=== PATIENT | female | born 1955 | race Caucasian/White ===

== ENCOUNTER 2018-09-22 14:40 | Outpatient (CLI) | payer MEDICARE ==
--- NOTE | 2018-09-22 15:39 | RAD ---
SCOLIOSIS STUDY: Technique: Single view of the thoracic spine, single view of the lumbosacral spine. History: 63-year-old female with back pain. History of scoliosis. FINDINGS: Anterior views of the thoracic and lumbosacral spine were performed. There is mild sclerotic curvatur e of the thoracolumbar spine. The maximum angle is approximately 23 degrees. There are small osteophy ernesto throughout the spine. No vertebral anomalies are present. IMPRESSION: Mild to moderate scoliotic curvature of the spine with associated degenerative changes as above. POS: CET
== END 2018-09-22 14:41 | disposition home or self-care (01) ==
LOC: BICRAD 14:40
PROVIDERS: ATTEND Physical Medicine & Rehabilitation
DX: M54.9 Dorsalgia, unspecified (principal); M43.9 Deforming dorsopathy, unspecified
CPT/HCPCS: 72081

== ENCOUNTER 2018-10-02 16:39 | Outpatient (CLI) | payer MEDICARE ==
--- NOTE | 2018-10-02 17:44 | RAD ---
CERVICAL SPINE THREE VIEWS: 10/02/18 HISTORY: Pain. FINDINGS: There is no prevertebral soft tissue swelling. Predental space is normal. On the lateral projection, slight reversal of the normal cervical lordosis. Cervical spine vertebral body height is maintained. There are no vertebral body fractures. There is severe degenerative holm e with loss of disc space height at C3-C4. Mild degenerative change at C4-C5, C5-C6 and C6-C7. There are multiple surgical clips projecting over the anterior inferior neck. On the AP projection, t here is evidence of facet hypertrophy. There are calcifications in the left neck suggesting atheroscl erotic disease. On the open mouth projection, limited evaluation of the odontoid process. Lateral masses of C1 and C2 articulate appropriately. IMPRESSION: Degenerative changes of the cervical spine. MRI if clinically warranted. POS: LINDA
== END 2018-10-02 16:40 | disposition home or self-care (01) ==
LOC: BICRAD 16:39
PROVIDERS: ATTEND Physical Medicine & Rehabilitation
DX: M54.2 Cervicalgia (principal); M47.812 Spondylosis without myelopathy or radiculopathy, cervical region
CPT/HCPCS: 72040

== ENCOUNTER 2019-02-19 09:25 | Outpatient (CLI) | payer MEDICARE ==
--- NOTE | 2019-02-19 11:46 | BD ---
BONE DENSITOMETRY USING DEXA: HISTORY: Postmenopausal screening for osteoporosis. FINDINGS: Lumbar Spine: BMD (g/cm2) L1 0.757 T-Score: -2.1 Z-Score: -0.5 L2 0.798 T-Score: -2.1 Z-Score: -0.3 L3 0.893 T-Score: -1.7 Z-Score: 0.2 L4 0.908 T-Score: -1.4 Z-Score: 0.6 L1-L4 0.849 T-Score: -1.8 Z-Score: 0.0 Femoral Neck: 0.539 T-Score: -2.8 Z-Score: -1.2 Total Femur: 0.825 T-Score: -1.0 Z-Score: 0.3 Impression: Osteoporosis. POS: OFF
--- NOTE | 2019-03-23 14:41 | MMO ---
Bilateral MAMMO Bilat Screen [facility]. CLINICAL HISTORY: Patient is 63 years old and is seen for screening. The patient has no family history of breast cancer. The patient has no personal history of cancer. The patient has a history of left cyst aspiration in YEARS AGO - benign. VIEWS: The views performed were: bilateral craniocaudal with tomosynthesis and bilateral mediolateral oblique with tomosynthesis. MAMMOGRAM FINDINGS: There are scattered fibroglandular densities. There are benign appearing calcifications seen in both breasts. There are no suspicious masses, suspicious calcifications, or new areas of architectural distortion. IMPRESSION: THERE IS NO MAMMOGRAPHIC EVIDENCE OF MALIGNANCY. A ROUTINE FOLLOW-UP MAMMOGRAM IN 1 YEAR IS RECOMMENDED. THE RESULTS OF THIS EXAM WERE SENT TO THE PATIENT. ACR BI-RADS Category 2 - Benign finding MAMMOGRAPHY NOTE: 1. A negative mammogram report should not delay a biopsy if a dominant of clinically suspicious mass is present. 2. Approximately 10% to 15% of breast cancers are not detected by mammography. 3. Adenosis and dense breasts may obscure an underlying neoplasm.
== END 2019-02-19 09:26 | disposition home or self-care (01) ==
LOC: BICMAMMO 09:25
PROVIDERS: ATTEND Family Medicine
DX: Z12.31 Encounter for screening mammogram for malignant neoplasm of breast (principal); M85.89 Other specified disorders of bone density and structure, multiple sites; M81.0 Age-related osteoporosis without current pathological fracture
CPT/HCPCS: 77063; 77067; 77080

== ENCOUNTER 2020-05-01 08:00 | Outpatient (CLI) | payer MEDICARE, OTHER ==
[2020-05-02 14:03] LABS: SARS-CoV-2 MS2 Positive; SARS-CoV-2 N Gene Negative; SARS-CoV-2 S Gene Negative; SARS-CoV-2 orf1ab Negative
== END 2020-05-04 08:01 | disposition home or self-care (01) ==
LOC: LABSCS 08:00
PROVIDERS: ATTEND Internal Medicine Gastroenterology
DX: Z01.812 Encounter for preprocedural laboratory examination (principal); Z11.59 Encounter for screening for other viral diseases; R13.19 Other dysphagia
CPT/HCPCS: 87635; U0003

== ENCOUNTER 2020-05-05 10:14 | Outpatient (CLI) | payer MEDICARE ==
--- NOTE | 2020-05-05 12:05 | RAD ---
XR Barium Swallow Esophagus History: Dysphagia Comparison: None. Findings: Patient was brought to the fluoroscopy suite. All questions were answered. 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 Lungs are otherwise c lear. Initially the patient was given gas-forming crystals and then thick liquid barium. The primary and se condary peristalsis was normal. No diverticulum, extrinsic mass effect nor mucosal regularity of the esophagus. The patient was subsequently given a 13 mm barium tablet which passed with ease. Next the patient was put in the PIRES position and given thin liquid barium to continuously drink. Agai n the primary and secondary peristalsis was normal. No reflux. No hiatal hernia. Impression: Normal esophagram. No evidence for stricture, extrinsic mass effect, mucosal irregularity , diverticulum, reflux nor hiatal hernia. Fluoroscopy time: 0.9 minutes
== END 2020-05-05 10:15 | disposition home or self-care (01) ==
LOC: RAD 10:14
PROVIDERS: ATTEND Internal Medicine Gastroenterology
DX: R13.19 Other dysphagia (principal)
CPT/HCPCS: 74220

== ENCOUNTER 2020-07-21 13:32 | Outpatient (CLI) | payer MEDICARE ==
--- NOTE | 2020-07-21 15:24 | MRI ---
MRI CERVICAL SPINE NONCONTRAST: Date: 07/21/2020 HISTORY: 65-year-old female with ICD-10: M54.2, neck pain; G62.9, peripheral neuropathy. COMPARISON: None available. FINDINGS: Mild reversal of curvature. No major subluxation. Cervical spinal cord is normal in size and signal. No major bone marrow signal abnormality. Vertebral body heights are maintained. C1-2: No central spinal canal stenosis. C2-3: Mild to moderate disc space narrowing. Small central disc-osteophyte protrusion. Moderate righ t and severe left facet DJD. No central or neural foraminal stenosis. C3-4: Severe disc space narrowing. Peripheral bony bridging of endplates. Normal right facet joint. Ankylosed left facet joint. No high grade central spinal canal stenosis and no significant neural for aminal stenosis. C4-5: Severe disc space narrowing. Mild, shallow broad based disc-osteophyte complex abuts and sligh tly indents the ventral surface of the spinal cord. Despite this, there is no central spinal canal st enosis. Bilateral small to moderate size uncinate process osteophytes encroach upon neural foramina, causing mild right and mild to moderate left neural foraminal stenosis. Normal right facet joint. Mil d left facet DJD. C5-6: Moderate disc space narrowing. Normal bilateral facet joints. Central and left paracentral sha llow broad based disc-osteophyte complex abuts left ventral surface of spinal cord. No high grade jane tral spinal canal stenosis. Small to moderate size bilateral uncinate process osteophytes, left great er than right. No right neural foraminal stenosis. Moderate left neural foraminal stenosis. C6-7: Severe disc space narrowing. No central spinal canal stenosis. Moderate size bilateral uncinat e process osteophytes. Right nerve root sleeve cyst in the right neural foramen. Mild right neural fo raminal stenosis. Moderate left neural foraminal stenosis. Normal right facet joint. Ankylosed left f acet joint. C7-T1: Mild disc space narrowing. Minimal broad based disc protrusion. Normal right facet joint. Rig ht neural foraminal nerve root sleeve cyst. Mild to moderate left neural foraminal stenosis. No centr al spinal canal stenosis. Little or no right neural foraminal stenosis. Moderate left neural foramina l stenosis. IMPRESSION: 1. Cervical spondylosis consisting of multilevel advanced degenerative disc disease. 2. 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 3. No high grade central spinal canal stenosis at any level. 4. Moderate neural foraminal stenosis at several levels, mostly on the left side. POS: JIN
== END 2020-07-21 13:33 | disposition home or self-care (01) ==
LOC: SCSMRI 13:32
PROVIDERS: ATTEND Neurological Surgery
DX: M54.2 Cervicalgia (principal); G62.9 Polyneuropathy, unspecified; M47.812 Spondylosis without myelopathy or radiculopathy, cervical region; M43.22 Fusion of spine, cervical region; M48.02 Spinal stenosis, cervical region
CPT/HCPCS: 72141

== ENCOUNTER 2021-01-03 09:29 | Outpatient (CLI) | payer MEDICARE | END 2021-01-03 09:30 | disposition home or self-care (01) | LOC: BICMAMMO 09:29 | PROVIDERS: ATTEND Family Medicine | DX: Z12.31 Encounter for screening mammogram for malignant neoplasm of breast (principal); M81.0 Age-related osteoporosis without current pathological fracture; M47.816 Spondylosis without myelopathy or radiculopathy, lumbar region; M85.89 Other specified disorders of bone density and structure, multiple sites | CPT/HCPCS: 77063; 77067; 77080 ==

== ENCOUNTER 2023-02-17 09:48 | Outpatient (CLI) | payer MEDICARE | END 2023-02-17 09:49 | disposition home or self-care (01) | LOC: BICMAMMO 09:48 | PROVIDERS: ATTEND Family Medicine Sports Medicine | DX: Z12.31 Encounter for screening mammogram for malignant neoplasm of breast (principal); Z78.0 Asymptomatic menopausal state; M81.0 Age-related osteoporosis without current pathological fracture | CPT/HCPCS: 77063; 77067; 77080 ==

== ENCOUNTER 2025-04-19 09:01 | Outpatient (CLI) | payer MEDICARE | END 2025-04-19 09:02 | disposition home or self-care (01) | LOC: BICMAMMO 09:01 | PROVIDERS: ATTEND Student in an Organized Health Care Education/Training Program | DX: Z12.31 Encounter for screening mammogram for malignant neoplasm of breast (principal); M81.0 Age-related osteoporosis without current pathological fracture; M85.89 Other specified disorders of bone density and structure, multiple sites; Z80.3 Family history of malignant neoplasm of breast | CPT/HCPCS: 77063; 77067; 77080 ==

== ENCOUNTER 2025-05-11 08:30 | Inpatient (IN) | payer MEDICARE ==
[2025-05-11 08:31] VITALS: BMI 27.7
[2025-05-11 09:23] LABS: #Basophils 0.03 10x3/uL (0.0-0.2); #Eosinophils 0.09 10x3/uL (0.0-0.7); #Monocytes 0.48 10x3/uL (0.11-0.59); #Neutrophils 3.58 10x3/uL (1.40-6.50); %Basophils 0.5 % (0.0-1.0); %Eosinophils 1.6 % (0.0-10.0); %Lymphocytes 24.2 % (21.0-51.0); %Monocytes 8.7 % (0.0-10.0); %Neutrophils 64.6 % (42.0-75.0); Hematocrit 37.8 % (36.0-47.0); Hemoglobin 12.5 g/dL (12.0-16.0); Mean Corpuscular Hemoglobin 30.3 pg (27.0-31.0); Mean Corpuscular Volume 91.5 fL (78.0-98.0); Platelet Count 269 10x3/uL (130-400); Red Blood Cell (RBC) Count 4.13 mill/uL (4.20-5.40); White Blood Cell (WBC) Count 5.54 10x3/uL (4.8-10.8)
[2025-05-11 09:46] LABS: ALT (SGPT) 11 U/L (Less than 34); AST (SGOT) 24 U/L (11-34); Albumin 3.9 g/dL (3.1-4.5); Alkaline Phosphatase 97 U/L (40-110); Anion Gap 12 mmol/L (10-20); BUN (Urea Nitrogen) 18 mg/dL (9.8-20.1); Bilirubin, Total 0.6 mg/dL (0.3-1.2); Calc. Creatinine Clearance 0 mL/min (70-130); Calcium 9.3 mg/dL (7.8-10.44); Carbon Dioxide 25 mmol/L (23-31); Chloride 104 mmol/L (98-107); Globulin 3.9 g/dL (2.4-3.5); Glucose 95 mg/dL (83-110); Potassium 4.0 mmol/L (3.5-5.1); Sodium 137 mmol/L (136-145)
[2025-05-11 10:12] LABS: INR-International Normal Ratio 2.2; Prothrombin Time 24.6 sec (12.0-14.7)
[2025-05-11 10:13] LABS: PTT 52.7 sec (22.9-36.1)
[2025-05-18] MEDS ORDERED: Heparin 10,000 UNITS/ 10 ML VIAL ONE (08:10)
[2025-05-18] MEDS ORDERED: CEFAZOLIN 2 GM VIAL ONE (08:10)
[2025-05-18] MEDS ORDERED: Lidocaine 1% (PF) 30 ML VIAL ONE (08:11)
[2025-05-18] MEDS ORDERED: fentaNYL PF 100 MCG/2 ML SYRINGE ONE (08:39)
[2025-05-18] MEDS ORDERED: Lidocaine 2% PF 100 mg/5 ml Syringe ONE (08:39)
[2025-05-18] MEDS ORDERED: SUGAMMADEX SODIUM 200 MG/2 ML VIAL ONE (08:39)
[2025-05-18] MEDS ORDERED: PROPOFOL 200 MG/20 ML VIAL ONE (08:42)
[2025-05-18] MEDS ORDERED: Rocuronium Bromide 10 MG/ML (10ML VIAL) ONE (08:42)
[2025-05-18] MEDS ORDERED: Ondansetron PF 4 MG/2 ML Vial ONE (08:42)
[2025-05-18] MEDS ORDERED: Iopamidol 370 76% 100 ML VIAL ONE (11:02)
== END 2025-05-18 15:07 | disposition home or self-care (01) | DRG 274 ==
LOC: SURG A 05-18 07:09 → EDSTATUS 05-18 08:30
PROVIDERS: ADMIT Internal Medicine Cardiovascular Disease; ATTEND Internal Medicine Cardiovascular Disease
PROC: 02L73DK Occlusion of Left Atrial Appendage with Intraluminal Device, Percutaneous Approach (ICD-10-PCS; principal; 2025-05-18)
PROC: B245ZZ4 Ultrasonography of Left Heart, Transesophageal (ICD-10-PCS; 2025-05-18)
PROC: 3E03329 Introduction of Other Anti-infective into Peripheral Vein, Percutaneous Approach (ICD-10-PCS; 2025-05-18)
PROC: 3E033XZ Introduction of Vasopressor into Peripheral Vein, Percutaneous Approach (ICD-10-PCS; 2025-05-18)
DX: I48.0 Paroxysmal atrial fibrillation (principal); Z00.6 Encounter for examination for normal comparison and control in clinical research program; Z86.711 Personal history of pulmonary embolism; Z79.01 Long term (current) use of anticoagulants; Z88.2 Allergy status to sulfonamides; Z88.5 Allergy status to narcotic agent; Z91.041 Radiographic dye allergy status
CPT/HCPCS: 33340; 36415; 80053; 85025; 85347; 85610; 85730; 86850; 86900; 86901; 93306; 93312; C1753; C1760; C1769; C1889; C1893; C1894; J1100; J1644; J2003; J2405; J2704; J2720; J3010; J7050; Q9967

== ENCOUNTER 2025-06-29 05:59 | Day surgery (SDC) | payer MEDICARE ==
[2025-06-28 11:20] VITALS: BMI 26.6
[2025-06-29 06:44] LABS: #Basophils 0.03 10x3/uL (0.0-0.2); #Eosinophils 0.32 10x3/uL (0.0-0.7); #Monocytes 0.48 10x3/uL (0.11-0.59); #Neutrophils 3.47 10x3/uL (1.40-6.50); %Basophils 0.5 % (0.0-1.0); %Eosinophils 5.4 % (0.0-10.0); %Lymphocytes 26.8 % (21.0-51.0); %Monocytes 8.1 % (0.0-10.0); %Neutrophils 58.9 % (42.0-75.0); Hematocrit 36.7 % (36.0-47.0); Hemoglobin 11.4 g/dL (12.0-16.0); Mean Corpuscular Hemoglobin 28.7 pg (27.0-31.0); Mean Corpuscular Volume 92.4 fL (78.0-98.0); Platelet Count 308 10x3/uL (130-400); Red Blood Cell (RBC) Count 3.97 mill/uL (4.20-5.40); White Blood Cell (WBC) Count 5.90 10x3/uL (4.8-10.8)
[2025-06-29 07:08] LABS: Anion Gap 15 mmol/L (10-20); BUN (Urea Nitrogen) 11 mg/dL (9.8-20.1); Calc. Creatinine Clearance 66 mL/min (70-130); Calcium 9.2 mg/dL (7.8-10.44); Carbon Dioxide 26 mmol/L (23-31); Chloride 103 mmol/L (98-107); Glucose 95 mg/dL (83-110); Potassium 3.9 mmol/L (3.5-5.1); Sodium 140 mmol/L (136-145)
[2025-06-29] MEDS ORDERED: Lidocaine 1% PF 5 ML VIAL ONE (07:48)
[2025-06-29] MEDS ORDERED: PROPOFOL 200 MG/20 ML VIAL ONE (07:48)
[2025-06-29] MEDS ORDERED: Glycopyrrolate 0.2 MG/ML 5 ML SYRINGE ONE (07:48)
== END 2025-06-29 09:00 | disposition home or self-care (01) ==
LOC: SDC 05:59
PROVIDERS: ATTEND Internal Medicine Cardiovascular Disease
PROC: B24BZZ4 Ultrasonography of Heart with Aorta, Transesophageal (ICD-10-PCS; principal; 2025-06-29)
DX: I48.0 Paroxysmal atrial fibrillation (principal); I34.0 Nonrheumatic mitral (valve) insufficiency; Z95.818 Presence of other cardiac implants and grafts; Z90.710 Acquired absence of both cervix and uterus; Z90.49 Acquired absence of other specified parts of digestive tract; Z91.041 Radiographic dye allergy status; Z88.4 Allergy status to anesthetic agent; Z88.8 Allergy status to other drugs, medicaments and biological substances; Z88.5 Allergy status to narcotic agent; Z88.2 Allergy status to sulfonamides; Z79.01 Long term (current) use of anticoagulants
CPT/HCPCS: 80048; 85025; 93312; J2704